=== PATIENT | female | born 1980 | race Caucasian/White ===

== ENCOUNTER 2020-02-02 21:01 | Emergency (ER) | payer MEDICAID ==
[~2020-02-02] VITALS: Ht 157.5 cm; Wt 60.0 kg
[2020-02-02 21:04] VITALS: BP 139/72
== END 2020-02-02 21:21 | disposition home or self-care (01) ==
LOC: ED 21:01
DX: B02.9 Zoster without complications (principal)

== ENCOUNTER 2020-05-29 15:31 | Emergency (ER) | payer MEDICAID ==
[~2020-05-29] VITALS: Ht 162.6 cm; Wt 60.8 kg
[2020-05-29 15:44] VITALS: Ht 162.6 cm; Wt 60.8 kg
[2020-05-29 16:17] VITALS: BP 141/74
== END 2020-05-29 16:17 | disposition home or self-care (01) ==
LOC: ED 15:31
DX: K11.20 Sialoadenitis, unspecified (principal); Z88.0 Allergy status to penicillin
CPT/HCPCS: J2930